=== PATIENT | female | born 1970 | race Caucasian/White ===

== ENCOUNTER 2024-07-15 09:20 | Outpatient (CLI) | payer OTHER, SELFPAY ==
--- NOTE | 2024-07-15 09:20 | MM_ITS ---
WS: [id number] BILATERAL 3D TOMOSYNTHESIS DIGITAL SCREENING MAMMOGRAPHY WITH CAD CLINICAL INFORMATION: SCREENING HISTORY: Screening mammogram. No current complaints. COMPARISON: None. TECHNIQUE: Bilateral CC and MLO views. FINDINGS: The breasts are composed of heterogeneous fibroglandular density tissue, which can limit the detection of small underlying mass lesions. No suspicious mass, asymmetry, calcifications, or architectural distortion. No evidence of malignancy. Vascular calcification. Incidental tiny secretory calcifications. Intramammary lymph node with fatty hilum upper outer RIGHT breast MM/MM scr tomosynthesis [id number] IMPRESSION: DENSITY: The breasts are heterogeneously dense, which may obscure small masses. BI-RADS: 2 - Benign FOLLOW UP: 1 Year Follow-up Recommend return to annual screening mammography.
== END 2024-07-15 09:21 | disposition home or self-care (01) ==
LOC: MOBLMAM 09:24
PROVIDERS: PCP Nurse Practitioner Family; Visit Provider Nurse Practitioner Family
DX: Z12.31 Encounter for screening mammogram for malignant neoplasm of breast (principal); R92.333 Mammographic heterogeneous density, bilateral breasts; R92.1 Mammographic calcification found on diagnostic imaging of breast; R59.0 Localized enlarged lymph nodes
CPT/HCPCS: 77063; 77067